=== PATIENT | female | born 1980 | race Caucasian/White ===

== ENCOUNTER 2022-01-21 19:40 | Emergency (ER) | payer MEDICAID ==
[~2022-01-21] VITALS: Ht 157.5 cm; Wt 56.8 kg
[2022-01-21] MEDS ORDERED: PREDNISONE 20MG TABLET PO ONE (23:30)
[2022-01-22] MEDS ORDERED: P20 MT (00:37)
[2022-01-22] MEDS ORDERED: LORAZEPAM 0.5MG TABLET PO ONE (01:00)
[2022-01-22] MEDS ORDERED: CYCLOBENZAPRINE 10MG TABLET PO ONE (01:00)
[2022-01-22] MEDS ORDERED: KETOROLAC 15MG/ML VIAL * ONE (01:00)
[2022-01-22] MEDS ORDERED: CYCL5TAB MT (01:23)
[2022-01-22 01:27] VITALS: BP 156/94
== END 2022-01-22 01:32 | disposition home or self-care (01) ==
LOC: ER 19:40
DX: G51.0 Bell's palsy (principal)
CPT/HCPCS: 99284; J1885; J7512